=== PATIENT | female | born 1990 | race Caucasian/White ===

== ENCOUNTER 2019-04-11 10:43 | Emergency (ER) | payer BC ==
[2019-04-11] MEDS ORDERED: Ondansetron 4 MG/2 ML SDV IVPUSH ONE (10:45)
[2019-04-11] MEDS ORDERED: Sodium Chloride 0.9% 1,000 ML IV ONE (10:45)
--- NOTE | 2019-04-11 10:45 | EDM.PDOC ---
ED HPI GENERAL MEDICAL PROBLEM - General Stated Complaint: 9 WEEKS PREG--VOMITING Time Seen by Provider: 04/11/19 10:44 Source of Information: Reports: Patient History Limitations: Reports: No Limitations - History of Present Illness INITIAL COMMENTS - FREE TEXT/NARRATIVE: HISTORY AND PHYSICAL: History of present illness: Patient is a 28-year-old female who presents to the emergency room today with complaints of nausea and vomiting in . She states she has been nauseous and vomiting every day for the past month. Patient states she follows with Dr Snyder at [facility]. She has been using Zofran routinely but feels this medication is not alleviating her symptoms. Last took Zofran at 7 AM this morning. She called the clinic this morning and was encouraged to come to the emergency room for evaluation/IV fluid. Her next appointment with Dr. Snyder is on 05/03/2019. LMP: 02/08/2019, , P:0 Patient denies any fever, chills, headache, change in vision, syncope or near syncope. Denies any chest pain, back pain, shortness of breath or cough. Denies any abdominal pain, nausea, vomiting, diarrhea, constipation or dysuria. Denies any vaginal bleeding, discharge or cramping. Has not noted any blood in urine or stool. Patient has been eating and drinking appropriately. Review of systems: As per history of present illness and below otherwise all systems reviewed and negative. Past medical history: As per history of present illness and as reviewed below otherwise noncontributory. Surgical history: As per history of present illness and as reviewed below otherwise noncontributory. Social history: See social history for further information Family history: As per history of present illness and as reviewed below otherwise noncontributory. Physical exam: General: Well-developed and well-nourished 28-year-old female. Alert and oriented. Nontoxic appearing and in no acute distress. HEENT: Atraumatic, normocephalic, pupils equal and reactive bilaterally, negative for conjunctival pallor or scleral icterus, mucous membranes moist, TMs normal bilaterally, throat clear, neck supple, nontender, trachea midline. No drooling or trismus noted. No meningeal signs. No hot potato voice noted. Lungs: Clear to auscultation, breath sounds equal bilaterally, chest nontender. Heart: S1S2, regular rate and rhythm without overt murmur Abdomen: Soft, nondistended, nontender. Negative for masses. Negative for costovertebral tenderness. Pelvis: Stable nontender. Genitourinary: Deferred. Rectal: Deferred. Skin: Intact, warm, dry. No lesions or rashes noted. Extremities: Atraumatic, moves all extremities per self without difficulty or deficits, negative for cords or calf pain. Neurovascular unremarkable. Neuro: Awake, alert, oriented. Cranial nerves II through XII unremarkable. Cerebellum unremarkable. Motor and sensory unremarkable throughout. Exam nonfocal. Notes: Patient feels improved after the IV fluids and Zofran. We'll offer her some Diclegis, as she feels the Zofran she has at home is not helping. She does have an appointment with Dr. Snyder later this month. Encouraged her to keep that appointment and or follow-up sooner if needed. Supportive care measures were reviewed and discussed. Voices understanding and is agreeable to plan of care. Denies any further questions or concerns at this time. Diagnostics: [employer]: NS, Zofran Prescription: Diclegis Impression: Nausea and Vomiting in Plan: 1. Small frequent meals throughout the day. Increase your oral fluids. 2. You can take the Diclegis as directed. Further refills per Dr Snyder. You may still uses Zofran if you feel this is helpful. 3. Please keep your appointment Dr. Snyder in follow-up as directed. Return to the ED as needed and as discussed. Definitive disposition and diagnosis as appropriate pending reevaluation and review of above. - Related Data Allergies Allergy/AdvReac Type Severity Reaction Status Date / Time latex Allergy Other Verified 04/11/19 10:55 Home Meds: Home Meds Hydroxychloroquine Sulfate [Plaquenil] 200 mg PO DAILY 04/11/19 [History] Ondansetron [Zofran ODT] 4 mg PO Q6H PRN 04/11/19 [History] 148/Iron/Folate 6/Dha [Tendera-Ob Softgel] 1 tab DAILY 04/11/19 [ History] ED ROS GENERAL - Review of Systems Review Of Systems: ROS reveals no pertinent complaints other than HPI. ED EXAM, GI/ABD - Physical Exam Exam: See Below (See dictation) Course - Vital Signs Last Recorded V/S: Last Vital Signs Temp 97.9 F 04/11/19 10:53 Pulse 113 H 04/11/19 10:53 Resp 18 04/11/19 10:53 BP 124/86 04/11/19 10:53 Pulse Ox 99 04/11/19 10:53 - Orders/Labs/Meds Orders: Active Orders 24 hr Category Date Time Status Sodium Chloride 0.9% [Normal Saline] 1,000 ml Med 04/11/19 10:45 Active IV STAT Medication Orders Sodium Chloride (Normal Saline) 1,000 mls @ 999 mls/hr IV STAT ONE Stop: 04/11/19 11:45 Last Admin: 04/11/19 11:02 Dose: 999 mls/hr Labs: Laboratory Tests 04/11/19 Range/Units 11:10 Urine Color DARK YELLOW Urine Appearance CLEAR Urine pH 6.0 (5.0-8.0) Ur Specific Branch >= 1.030 (1.001-1.035) Urine Protein NEGATIVE (NEGATIVE) mg/dL Urine Glucose (UA) NEGATIVE (NEGATIVE) mg/dL Urine Ketones >=80 (NEGATIVE) mg/dL Urine Occult Blood NEGATIVE (NEGATIVE) Urine Nitrite NEGATIVE (NEGATIVE) Urine Bilirubin SMALL H (NEGATIVE) Urine Ictotest NEGATIVE Urine Urobilinogen 0.2 (<2.0) EU/dL Ur Leukocyte Esterase NEGATIVE (NEGATIVE) Meds: Medications Generic Name Dose Route Start Last Admin Trade Name Freq PRN Reason Stop Dose Admin Sodium Chloride 1,000 mls @ 999 mls/hr 04/11/19 10:45 04/11/19 11:02 Normal Saline IV 04/11/19 11:45 999 mls/hr STAT ONE Administration Discontinued Medications Generic Name Dose Route Start Last Admin Trade Name Freq PRN Reason Stop Dose Admin Ondansetron HCl 4 mg 04/11/19 10:45 04/11/19 11:02 Zofran IVPUSH 04/11/19 10:46 4 mg ONETIME ONE Administration Departure - Departure Time of Disposition: 11:45 Disposition: Home, Self-Care 01 Clinical Impression: Nausea and vomiting during - Discharge Information Instructions: Morning Sickness, [id number] Referrals: Kelly Snyder MD [Primary Care Provider] - Additional Instructions: The following information is given to patients seen in the emergency department who are being discharged to home. This information is to outline your options for follow-up care. We provide all patients seen in our emergency department with a follow-up referral. The need for follow-up, as well as the timing and circumstances, are variable depending upon the specifics of your emergency department visit. If you don't have a primary care physician on staff, we will provide you with a referral. We always advise you to contact your personal physician following an emergency department visit to inform them of the circumstance of the visit and for follow-up with them and/or the need for any referrals to a consulting specialist. The emergency department will also refer you to a specialist when appropriate. This referral assures that you have the opportunity for follow-up care with a specialist. All of these measure are taken in an effort to provide you with optimal care, which includes your follow-up. Under all circumstances we always encourage you to contact your private physician who remains a resource for coordinating your care. When calling for follow-up care, please make the office aware that this follow-up is from your recent emergency room visit. If for any reason you are refused follow-up, please contact the [facility] Emergency Department at and asked to speak to the emergency department charge nurse. [facility] [address] [place] [address] [place] [address] 1. Small frequent meals throughout the day. Increase your oral fluids. 2. You can take the Diclegis as directed. Further refills per Dr Snyder. You may still uses Zofran if you feel this is helpful. 3. Please keep your appointment Dr. Snyder in follow-up as directed. Return to the ED as needed and as discussed. - My Orders Last 24 Hours: My Active Orders 04/11/19 10:45 Sodium Chloride 0.9% [Normal Saline] 1,000 ml IV STAT - Assessment/Plan Last 24 Hours: My Active Orders 04/11/19 10:45 Sodium Chloride 0.9% [Normal Saline] 1,000 ml IV STAT
== END 2019-04-11 12:01 | disposition home or self-care (01) ==
LOC: MW.ED 10:43
DX: O21.9 Vomiting of pregnancy, unspecified (principal); Z91.040 Latex allergy status; Z3A.09 9 weeks gestation of pregnancy
CPT/HCPCS: 81003; 96361; 96374; 99283; J2405; J7040

== ENCOUNTER 2019-10-30 15:35 | Inpatient (IN) | payer BC, OTHER ==
[2019-10-30] MEDS ORDERED: Tranexamic Acid 1,000 MG in Sodium Chloride 0.9% 100 ML IV PRN (16:21)
[2019-10-30] MEDS ORDERED: Butorphanol 1 MG/ML SDV IVPUSH PRN (16:21)
[2019-10-30] MEDS ORDERED: Misoprostol 200 MCG Tab PO PRN (16:21)
[2019-10-30] MEDS ORDERED: Terbutaline 1 MG/ML SDV SUBCUT PRN (16:21)
[2019-10-30] MEDS ORDERED: Water For Irrigation,Sterile 1,000 ML Container IRR PRN (16:21)
[2019-10-30] MEDS ORDERED: Nalbuphine 10 MG/1 ML Vial IVPUSH PRN (16:21)
[2019-10-30] MEDS ORDERED: Ondansetron 4 MG/2 ML SDV IVPUSH PRN (16:21)
[2019-10-30] MEDS ORDERED: Methylergonovine 0.2 MG/1 ML Amp IM PRN (16:21)
[2019-10-30] MEDS ORDERED: Sodium Chloride 0.9% 10 ML Syringe FLUSH PRN (16:21)
[2019-10-30] MEDS ORDERED: Carboprost Tromethamine 250 MCG/1 ML Amp IM PRN (16:21)
[2019-10-30] MEDS ORDERED: Sodium Chloride 0.9% 2.5 ML Syringe FLUSH PRN (16:21)
[2019-10-30] MEDS ORDERED: Lidocaine 1% 50 ML MDV INJECT PRN (16:21)
[2019-10-30] MEDS ORDERED: Sodium Chloride 0.9% 10 ML SDV IV PRN (16:21)
[2019-10-30] MEDS ORDERED: Oxytocin/0.9 % Sodium Chloride 30 UNIT/500 ML BAG IV SCH ×2 (16:30)
[2019-10-30] MEDS ORDERED: Ampicillin 2 GM in Sodium Chloride 0.9% 100 ML IV ONE (17:00)
[2019-10-30] MEDS: Lactated Ringers 1,000 ML IV SCH ×3 (17:14→23:49)
[2019-10-30 17:42] LABS: BLOOD UREA NITROGEN,BUN 13 mg/dL (7.0-18.0); CARBON DIOXIDE,CO2 22.6 mmol/L (21.0-32.0); CHLORIDE,CL 103 mmol/L (98-107); GLUCOSE RANDOM 86 mg/dL (74-106); POTASSIUM,K 3.7 mmol/L (3.5-5.1); SODIUM,NA 136 mmol/L (136-145)
[2019-10-30] MEDS: Ampicillin 1 GM in Sodium Chloride 0.9% 50 ML IV SCH (21:21)
--- NOTE | 2019-10-30 23:09 | PCM.PREANE ---
Preanesthetic Assessment - Anesthesia/Transfusion/Family Hx Anesthesia History: Prior Anesthesia Reaction (PONV) Type of Anesthesia Reaction: Other (see below) (PONV) Family History of Anesthesia Reaction: No Transfusion History: No Prior Transfusion(s) Intubation History: Unknown - Review of Systems General: No Symptoms Pulmonary: No Symptoms Cardiovascular: No Symptoms, Other (PIH) Gastrointestinal: Other (GDM) Neurological: Other (Lupus) - Physical Assessment NPO Status Date: 10/30/19 NPO Status Time: 21:00 Height: 5 ft 6 in Weight: 79.832 kg ASA Class: 2 Mental Status: Alert & Oriented x3 Airway Class: Mallampati = 1 Dentition: Reports: Normal Dentition Thyro-Mental Finger Breadths: 3 ROM/Head Extension: Full Lungs: Clear to Auscultation, Normal Respiratory Effort Cardiovascular: Regular Rate, Regular Rhythm - Lab Values: Laboratory Last Values WBC 6.74 K/uL (4.0-11.0) 10/30/19 16:43 RBC 4.15 M/uL (4.30-5.90) L 10/30/19 16:43 Hgb 11.3 g/dL (12.0-16.0) L 10/30/19 16:43 Hct 35.0 % (36.0-46.0) L 10/30/19 16:43 MCV 84.3 fL (80.0-98.0) 10/30/19 16:43 MCH 27.2 pg (27.0-32.0) 10/30/19 16:43 MCHC 32.3 g/dL (31.0-37.0) 10/30/19 16:43 RDW Std Deviation 38.6 fl (28.0-62.0) 10/30/19 16:43 RDW Coeff of Justin 13 % (11.0-15.0) 10/30/19 16:43 Plt Count 208 K/uL (150-400) 10/30/19 16:43 MPV 11.10 fL (7.40-12.00) 10/30/19 16:43 Nucleated RBC % 0.0 /100WBC 10/30/19 16:43 Nucleated RBCs # 0 K/uL 10/30/19 16:43 Sodium 136 mmol/L (136-145) 10/30/19 16:43 Potassium 3.7 mmol/L (3.5-5.1) 10/30/19 16:43 Chloride 103 mmol/L (98-107) 10/30/19 16:43 Carbon Dioxide 22.6 mmol/L (21.0-32.0) 10/30/19 16:43 BUN 13 mg/dL (7.0-18.0) 10/30/19 16:43 Creatinine 0.6 mg/dL (0.6-1.0) 10/30/19 16:43 Est Cr Clr Drug Dosing 128.35 mL/min 10/30/19 16:43 Estimated GFR (MDRD) > 60.0 ml/min 10/30/19 16:43 Glucose 86 mg/dL (74-106) 10/30/19 16:43 POC Glucose 85 mg/dL (60-110) 10/30/19 21:15 Uric Acid 3.2 mg/dL (2.6-7.2) 10/30/19 16:43 Calcium 8.7 mg/dL (8.5-10.1) 10/30/19 16:43 Total Bilirubin 0.2 mg/dL (0.2-1.0) 10/30/19 16:43 AST 22 IU/L (15-37) 10/30/19 16:43 ALT 23 IU/L (14-63) 10/30/19 16:43 Alkaline Phosphatase 141 U/L (46-116) H 10/30/19 16:43 Total Protein 6.0 g/dL (6.4-8.2) L 10/30/19 16:43 Albumin 2.7 g/dL (3.4-5.0) L 10/30/19 16:43 Globulin 3.3 g/dL (2.6-4.0) 10/30/19 16:43 Albumin/Globulin Ratio 0.8 (0.9-1.6) L 10/30/19 16:43 Ur Random Creatinine 129.7 mg/dL 10/30/19 16:00 U Random Total Protein 24.5 mg/dL (<11.9) H 10/30/19 16:00 Protein/Creatinin Ratio 0.2 10/30/19 16:00 Blood Type A NEGATIVE 10/30/19 16:43 Antibody Screen NEGATIVE 10/30/19 16:43 - Allergies Allergies/Adverse Reactions: Allergies Allergy/AdvReac Type Severity Reaction Status Date / Time latex Allergy Rash Verified 10/30/19 16:19 - Acknowledgements Anesthesia Type Planned: Epidural Pt an Appropriate Candidate for the Planned Anesthesia: Yes Alternatives and Risks of Anesthesia Discussed w Pt/Guardian: Yes Pt/Guardian Understands and Agrees with Anesthesia Plan: Yes PreAnesthesia Questionnaire - Past Health History Medical/Surgical History: Denies Medical/Surgical History HEENT History: Reports: None Cardiovascular History: Reports: Hypertension, Other (See Below) Other Cardiovascular History: gestational hypertension Genitourinary History: Reports: None 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 , Musculoskeletal History: Reports: SLE Psychiatric History: Reports: Anxiety Endocrine/Metabolic History: Reports: Diabetes, Gestational Immunologic History: Reports: SLE - Past Surgical History Head Surgeries/Procedures: Reports: None HEENT Surgical History: Reports: Oral Surgery Cardiovascular Surgical History: Reports: None Female Surgical History: Reports: Breast Implant Endocrine Surgical History: Reports: None Musculoskeletal Surgical History: Reports: None, Other (See Below) Other Musculoskeletal Surgeries/Procedures:: surgery on left foot - SUBSTANCE USE Smoking Status *Q: Never Smoker Recreational Drug Use History: No - HOME MEDS Home Medications: Home Meds 148/Iron/Folate 6/Dha [Tendera-Ob Softgel] 1 tab PO DAILY 04/11/19 [ History] Hydroxychloroquine Sulfate [Plaquenil] 1 tab PO DAILY 09/16/19 [History] buPROPion [Wellbutrin SR] 1 tab PO DAILY 10/30/19 [History] - CURRENT (IN HOUSE) MEDS Current Meds: Current Medications Butorphanol Tartrate (Stadol) 1 mg IVPUSH Q1H PRN PRN Reason: Pain Carboprost Tromethamine (Hemabate Ds) 250 mcg IM ASDIRECTED PRN PRN Reason: Post Hemorrhage Ampicillin Sodium 1 gm/ Sodium (Chloride) 50 mls @ 100 mls/hr IV Q4H [facility] Last Admin: 10/30/19 21:21 Dose: 100 mls/hr Lactated Ringer's (Ringers, Lactated) 1,000 mls @ 150 mls/hr IV ASDIRECTED [facility] Last Admin: 10/30/19 17:14 Dose: 150 mls/hr Oxytocin/Sodium Chloride (Oxytocin 30 Unit/500 Ml-Ns) 30 unit in 500 mls @ 500 mls/hr IV TITRATE ADONIS Oxytocin/Sodium Chloride (Oxytocin 30 Unit/500 Ml-Ns) 30 unit in 500 mls @ 2 mls/hr IV TITRATE ADONIS; Protocol Last Titration: 10/30/19 22:23 Dose: 16 munits/min, 16 mls/hr Tranexamic Acid 1,000 mg/ (Sodium Chloride) 110 mls @ 660 mls/hr IV ONETIME PRN PRN Reason: Bleeding Lidocaine HCl (Xylocaine 1%) 50 ml INJECT ONETIME PRN PRN Reason: Laceration repair Methylergonovine Maleate (Methergine) 0.2 mg IM ASDIRECTED PRN PRN Reason: Post Hemorrhage Misoprostol (Cytotec) 200 mcg PO ONETIME PRN PRN Reason: Post Hemorrhage Nalbuphine HCl (Nubain) 10 mg IVPUSH Q1H PRN PRN Reason: Pain (severe 7-10) Ondansetron HCl (Zofran) 4 mg IVPUSH Q6H PRN PRN Reason: Nausea/Vomiting Sodium Chloride (Saline Flush) 10 ml FLUSH ASDIRECTED PRN PRN Reason: Keep Vein Open Sodium Chloride (Saline Flush) 2.5 ml FLUSH ASDIRECTED PRN PRN Reason: Keep Vein Open Sodium Chloride (Normal Saline) 10 ml IV ASDIRECTED PRN PRN Reason: IV Use Sterile Water (Sterile Water For Irrigation) 1,000 ml IRR ASDIRECTED PRN PRN Reason: delivery Terbutaline Sulfate (Brethine) 0.25 mg SUBCUT ASDIRECTED PRN PRN Reason: Tacysystole Discontinued Medications Ampicillin Sodium 2 gm/ Sodium (Chloride) 100 mls @ 200 mls/hr IV ONETIME ONE Stop: 10/30/19 17:29 Last Admin: 10/30/19 17:15 Dose: 200 mls/hr
[2019-10-30] MEDS ORDERED: Bupivicaine/fentaNYL/NS 250 ML ONE (23:11)
[2019-10-31] MEDS: Ampicillin 1 GM in Sodium Chloride 0.9% 50 ML IV SCH ×4 (01:11→16:57)
[2019-10-31] MEDS ORDERED: Bupivacaine 0.25% 10 ML SDV ONE ×2 (04:13→07:55)
[2019-10-31] MEDS: Lactated Ringers 1,000 ML IV SCH ×4 (04:18→19:19)
[2019-10-31] MEDS ORDERED: Morphine PF 10 MG/10 ML SDV ONE ×2 (07:47→09:55)
[2019-10-31] MEDS ORDERED: Oxytocin 10 Units/1 ML SDV ONE (07:53)
[2019-10-31] MEDS ORDERED: Ondansetron 4 MG/2 ML SDV ONE (07:53)
[2019-10-31] MEDS ORDERED: Azithromycin 500 MG in Sodium Chloride 0.9% 250 ML IV SCH (08:00)
[2019-10-31] MEDS ORDERED: ceFAZolin 1 GM Vial ONE (08:16)
[2019-10-31] MEDS ORDERED: Ketamine 500 mg/10 ML MDV ONE (08:37)
[2019-10-31] MEDS ORDERED: Midazolam 1 MG/ML 2 ML SDV ONE ×2 (08:46→09:01)
[2019-10-31] MEDS ORDERED: Acetaminophen/oxyCODONE 325-5 MG Tab PO PRN (09:52)
[2019-10-31] MEDS ORDERED: diphenhydrAMINE 50 MG/ML SDV IVPUSH PRN (09:52)
[2019-10-31] MEDS ORDERED: Lanolin 100% Cream 7 GM Tube TOP PRN (09:52)
[2019-10-31] MEDS ORDERED: Bisacodyl 10 MG Supp RECTAL PRN (09:52)
[2019-10-31] MEDS ORDERED: Tranexamic Acid 1,000 MG in Sodium Chloride 0.9% 100 ML IV PRN (09:52)
[2019-10-31] MEDS ORDERED: Famotidine 20 MG Tab PO PRN (09:52)
[2019-10-31] MEDS ORDERED: Misoprostol 200 MCG Tab RECTAL PRN (09:52)
[2019-10-31] MEDS ORDERED: Methylergonovine 0.2 MG/1 ML Amp IM PRN (09:52)
[2019-10-31] MEDS ORDERED: Oxytocin 10 Units/1 ML SDV IM PRN (09:52)
[2019-10-31] MEDS ORDERED: Oxytocin/Lactated Ringers 30 UNIT/500 ML BAG IV SCH (10:00)
--- NOTE | 2019-10-31 10:07 | PCM.OPNOTE ---
- General Post-Op/Procedure Note Date of Surgery/Procedure: 10/31/19 Operative Procedure(s): Primary low-transverse cesearean section Findings: Live female infant, asynclitic in occiput transverse position Apgars 8/9, weight 3120g, arterial pH 7.121/base excess -8, venous pH 7.115/ base excess -9 Extension of hysterotomy to bilateral broad ligaments Pre Op Diagnosis: 29yo at 38w3d. Induction of labor for gestational hypertension. Gestational diabetes. Arrest of descent. Right occiput transverse position Post-Op Diagnosis: 29yo at 38w3d. Induction of labor for gestational hypertension. Gestational diabetes. Arrest of descent. Right occiput transverse position Anesthesia Technique: Epidural Primary Surgeon: Kelly Snyder Secondary Surgeon: Donald Nelson Shingle Sawyer: Agusto Medina Pathology: Placenta, umbilical cord gases, umbilical cord blood Fluid Replacement, Intraop: 1,000 Output, Urine Amount: 500 (blood-tinged) EBL in mLs: 800 Complications: None Condition: Good Free Text/Narrative:: Preoperative antibiotic prophylaxis: 2g Ancef, 500mg Azithromycin IV GBS prophylaxis: Ampicillin per routine
[2019-10-31] MEDS: Ketorolac 30 MG/ML SDV IVPUSH SCH ×3 (10:22→21:54)
--- NOTE | 2019-10-31 11:01 | PCM.POSTAN ---
POST ANESTHESIA ASSESSMENT - MENTAL STATUS Mental Status: Alert, Oriented - RESPIRATORY Respiratory Status: Respiratory Rate WNL, Airway Patent, O2 Saturation Stable - CARDIOVASCULAR CV Status: Pulse Rate WNL, Blood Pressure Stable - GASTROINTESTINAL GI Status: No Symptoms - PAIN Pain Score: 3 - POST OP HYDRATION Hydration Status: Adequate & Stable
[2019-10-31] MEDS: Ondansetron 4 MG/2 ML SDV IVPUSH PRN ×2 (13:18→17:19)
[2019-10-31] MEDS: Hydroxychloroquine 200 MG Tab PO SCH (15:14)
[2019-10-31] MEDS: buPROPion 150 MG Tab.SR PO SCH (15:15)
--- NOTE | 2019-10-31 17:05 | PCM.SN.2 ---
- Free Text/Narrative Note: I was informed by patient that her dressing was soaked Patient seen at bedside , dressing , slightly soaked Dressing removed and changed. VSS 119/72 , HR: 92 Plan: Wound dressing check Pain control as needed Julia
[2019-10-31] MEDS: Docusate Sodium 100 MG Cap PO SCH (21:54)
[2019-10-31] MEDS ORDERED: Nalbuphine 10 MG/1 ML Vial IVPUSH PRN (22:21)
[2019-11-01] MEDS: Ampicillin 1 GM in Sodium Chloride 0.9% 50 ML IV SCH ×3 (03:03→08:31)
[2019-11-01] MEDS: Ketorolac 30 MG/ML SDV IVPUSH SCH ×3 (04:02→09:21)
--- NOTE | 2019-11-01 07:39 | PCM48HPAN ---
Post Anesthesia Note - EVALUATION WITHIN 48HRS OF ANESTHETIC Vital Signs in Normal Range: Yes Patient Participated in Evaluation: Yes Respiratory Function Stable: Yes Airway Patent: Yes Cardiovascular Function Stable: Yes Hydration Status Stable: Yes Pain Control Satisfactory: Yes Nausea and Vomiting Control Satisfactory: Yes Mental Status Recovered: Yes Vital Signs: Last Vital Signs Temp 36.2 C 11/01/19 04:00 Pulse 100 11/01/19 06:00 Resp 18 11/01/19 06:00 BP 120/59 L 11/01/19 04:00 Pulse Ox 96 11/01/19 06:00 - COMMENTS/OBSERVATIONS Free Text/Narrative:: full sensation in legs bilaterally
--- NOTE | 2019-11-01 08:37 | PCM.PNPP ---
- General Info Date of Service: 11/01/19 Subjective Update: Patient doing well. Pain controlled with oral pain medication. Minimal lochia. Ambulating in room. Currently attempting to void for first time after Roberts removal. Difficulty with latch yesterday. Nausea with food intake yesterday. Functional Status: Reports: Pain Controlled, Ambulating - Review of Systems General: Reports: No Symptoms HEENT: Reports: No Symptoms Pulmonary: Reports: No Symptoms Cardiovascular: Reports: No Symptoms Gastrointestinal: Reports: No Symptoms Genitourinary: Reports: No Symptoms Musculoskeletal: Reports: No Symptoms Skin: Reports: No Symptoms Neurological: Reports: No Symptoms Psychiatric: Reports: No Symptoms - Patient Data Vital Signs - Most Recent: Last Vital Signs Temp 36.2 C 11/01/19 04:00 Pulse 100 11/01/19 06:00 Resp 18 11/01/19 06:00 BP 120/59 L 11/01/19 04:00 Pulse Ox 96 11/01/19 06:00 Weight - Most Recent: 79.832 kg I&O - Last 24 Hours: Intake & Output 10/31/19 11/01/19 11/01/19 22:59 06:59 14:59 Intake Total 950 Output Total 575 900 Balance 375 -900 Lab Results - Last 24 Hours: Laboratory Results - last 24 hr 10/31/19 10/31/19 10/31/19 Range/Units 08:35 10:00 12:18 Hgb (12.0-16.0) g/dL Hct (36.0-46.0) % Cord ABG pH 7.121 L (7.18-7.38) Cord ABG Base Excess -8 (-10--2) Cord VBG pH 7.115 L (7.25-7.45) Cord VBG Base Excess -9 (-10--2) POC Glucose 96 (60-110) mg/dL Screen NEGATIVE (NEGATIVE) RhIG Candidate? YES Rhogam Indicated YES, BABY RH POS H 11/01/19 Range/Units 05:15 Hgb 8.5 L (12.0-16.0) g/dL Hct 26.6 L (36.0-46.0) % Cord ABG pH (7.18-7.38) Cord ABG Base Excess (-10--2) Cord VBG pH (7.25-7.45) Cord VBG Base Excess (-10--2) POC Glucose (60-110) mg/dL Screen (NEGATIVE) RhIG Candidate? Rhogam Indicated Med Orders - Current: Current Medications Bisacodyl (Dulcolax) 10 mg RECTAL ONETIME PRN PRN Reason: Constipation Bupropion HCl (Wellbutrin Sr) 150 mg PO DAILY [facility] Last Admin: 10/31/19 15:15 Dose: Not Given Butorphanol Tartrate (Stadol) 1 mg IVPUSH Q1H PRN PRN Reason: Pain Carboprost Tromethamine (Hemabate Ds) 250 mcg IM ASDIRECTED PRN PRN Reason: Post Hemorrhage Diphenhydramine HCl (Benadryl) 25 mg IVPUSH Q6H PRN PRN Reason: Itching or Nausea Docusate Sodium (Colace) 100 mg PO BID [facility] Last Admin: 10/31/19 21:54 Dose: 100 mg Emollient Ointment (Lansinoh Hpa) 0 gm TOP ASDIRECTED PRN PRN Reason: Sore Nipples Famotidine (Pepcid) 20 mg PO BID PRN PRN Reason: Heartburn Hydroxychloroquine Sulfate (Plaquenil) 200 mg PO DAILY [facility] Last Admin: 10/31/19 15:14 Dose: Not Given Ampicillin Sodium 1 gm/ Sodium (Chloride) 50 mls @ 100 mls/hr IV Q4H [facility] Last Admin: 11/01/19 08:31 Dose: Not Given Lactated Ringer's (Ringers, Lactated) 1,000 mls @ 150 mls/hr IV ASDIRECTED [facility] Last Infusion: 10/31/19 07:46 Dose: 999 mls/hr Oxytocin/Sodium Chloride (Oxytocin 30 Unit/500 Ml-Ns) 30 unit in 500 mls @ 500 mls/hr IV TITRATE ADONIS Oxytocin/Sodium Chloride (Oxytocin 30 Unit/500 Ml-Ns) 30 unit in 500 mls @ 2 mls/hr IV TITRATE [facility]; Protocol Last Titration: 10/31/19 07:46 Dose: 0 munits/min, 0 mls/hr Tranexamic Acid 1,000 mg/ (Sodium Chloride) 110 mls @ 660 mls/hr IV ONETIME PRN PRN Reason: Bleeding Azithromycin 500 mg/ Sodium (Chloride) 250 mls @ 500 mls/hr IV ONETIME ADONIS Tranexamic Acid 1,000 mg/ (Sodium Chloride) 110 mls @ 660 mls/hr IV ONETIME PRN PRN Reason: Bleeding Lactated Ringer's (Ringers, Lactated) 1,000 mls @ 125 mls/hr IV ASDIRECTED [facility] Last Admin: 10/31/19 19:19 Dose: 125 mls/hr Oxytocin/Lactated Ringer's (Pitocin In Lr 30 Units/500 Ml) 30 unit in 500 mls @ 999 mls/hr IV TITRATE ADONIS; Protocol Ibuprofen (Motrin) 800 mg PO Q8H PRN PRN Reason: mild pain or fever Ketorolac Tromethamine (Toradol) 30 mg IVPUSH Q6H [facility] Stop: 11/01/19 10:01 Last Admin: 11/01/19 04:02 Dose: 30 mg Lidocaine HCl (Xylocaine 1%) 50 ml INJECT ONETIME PRN PRN Reason: Laceration repair Methylergonovine Maleate (Methergine) 0.2 mg IM ASDIRECTED PRN PRN Reason: Post Hemorrhage Methylergonovine Maleate (Methergine) 0.2 mg IM ONETIME PRN PRN Reason: Excessive Vaginal Bleeding Misoprostol (Cytotec) 200 mcg PO ONETIME PRN PRN Reason: Post Hemorrhage Misoprostol (Cytotec) 1,000 mcg RECTAL ONETIME PRN PRN Reason: excessive bleeding Nalbuphine HCl (Nubain) 10 mg IVPUSH Q1H PRN PRN Reason: Pain (severe 7-10) Last Admin: 10/31/19 22:04 Dose: 10 mg Nalbuphine HCl (Nubain) 5 mg IVPUSH Q6H PRN PRN Reason: Itching Last Admin: 10/31/19 22:36 Dose: 5 mg Ondansetron HCl (Zofran) 4 mg IVPUSH Q4H PRN PRN Reason: Nausea/Vomiting Last Admin: 10/31/19 17:19 Dose: 4 mg Oxycodone/Acetaminophen (Percocet 325-5 Mg) 1 tab PO Q4H PRN PRN Reason: Pain (moderate 4-6) Oxycodone/Acetaminophen (Percocet 325-5 Mg) 2 tab PO Q4H PRN PRN Reason: Pain (moderate 4-6) Oxytocin (Pitocin) 10 unit IM ASDIRECTED PRN PRN Reason: Excessive Vaginal Bleeding Sodium Chloride (Saline Flush) 10 ml FLUSH ASDIRECTED PRN PRN Reason: Keep Vein Open Sodium Chloride (Saline Flush) 2.5 ml FLUSH ASDIRECTED PRN PRN Reason: Keep Vein Open Sodium Chloride (Normal Saline) 10 ml IV ASDIRECTED PRN PRN Reason: IV Use Sterile Water (Sterile Water For Irrigation) 1,000 ml IRR ASDIRECTED PRN PRN Reason: delivery Terbutaline Sulfate (Brethine) 0.25 mg SUBCUT ASDIRECTED PRN PRN Reason: Tacysystole Discontinued Medications Bupivacaine HCl (Sensorcaine-Mpf 0.25%) Confirm Administered Dose 10 ml .ROUTE .STK-MED ONE Stop: 10/31/19 04:14 Last Admin: 11/01/19 08:30 Dose: Not Given Bupivacaine HCl (Sensorcaine-Mpf 0.25%) Confirm Administered Dose 20 ml .ROUTE .STK-MED ONE Stop: 10/31/19 07:56 Last Admin: 11/01/19 08:30 Dose: Not Given Cefazolin Sodium (Ancef) Confirm Administered Dose 2 gm .ROUTE .STK-MED ONE Stop: 10/31/19 08:17 Ampicillin Sodium 2 gm/ Sodium (Chloride) 100 mls @ 200 mls/hr IV ONETIME ONE Stop: 10/30/19 17:29 Last Admin: 10/30/19 17:15 Dose: 200 mls/hr Fentanyl/Bupivacaine HCl (Fentanyl/Bupivacaine/Ns 2 Mcg-0.125% 250 Ml) Confirm Administered Dose 250 mls @ as directed .ROUTE .STK-MED ONE Stop: 10/30/19 23:12 Ketamine HCl (Ketalar) Confirm Administered Dose 500 mg .ROUTE .STK-MED ONE Stop: 10/31/19 08:38 Midazolam HCl (Versed 1 Mg/Ml) Confirm Administered Dose 2 mg .ROUTE .STK-MED ONE Stop: 10/31/19 08:47 Midazolam HCl (Versed 1 Mg/Ml) Confirm Administered Dose 2 mg .ROUTE .STK-MED ONE Stop: 10/31/19 09:02 Morphine Sulfate (Duramorph Pf) Confirm Administered Dose 10 mg .ROUTE .STK-MED ONE Stop: 10/31/19 07:48 Morphine Sulfate (Duramorph Pf) Confirm Administered Dose 10 mg .ROUTE .STK-MED ONE Stop: 10/31/19 09:56 Ondansetron HCl (Zofran) 4 mg IVPUSH Q6H PRN PRN Reason: Nausea/Vomiting Ondansetron HCl (Zofran) Confirm Administered Dose 4 mg .ROUTE .STK-MED ONE Stop: 10/31/19 07:54 Oxytocin (Pitocin) Confirm Administered Dose 20 unit .ROUTE .STK-MED ONE Stop: 10/31/19 07:54 - Interaction Infant Disposition, : to Nursery Feeding: Attempted ; Nursed Fair/Poor, Bottle Fed Infant Support Person: - Recovery Exam Fundal Tone: Firm Fundal Level: 1 Fingerbreadths Below Umbilicus Fundal Placement: Midline Lochia Amount: Scant Lochia Color: Rubra/Red Bladder Status: Nonpalpable - Exam General: Alert, Oriented Neck: Supple Lungs: Clear to Auscultation, Normal Respiratory Effort Cardiovascular: Regular Rate, Regular Rhythm GI/Abdominal Exam: Soft, Non-Tender, No Distention Extremities: Non-Tender, Pedal Edema (2+) Skin: Warm, Dry, Intact Wound/Incisions: Dressing Dry and Intact Neurological: No New Focal Deficit Psy/Mental Status: Alert, Normal Affect, Normal Mood - Problem List & Annotations (1) delivery delivered SNOMED Code(s): 389694316 Code(s): O82 - ENCOUNTER FOR DELIVERY WITHOUT INDICATION Status: Acute Current Visit: Yes (2) Gestational diabetes mellitus (GDM) SNOMED Code(s): 21632306 Code(s): O24.419 - GESTATIONAL DIABETES MELLITUS IN , UNSP CONTROL Status: Acute Current Visit: Yes (3) Gestational hypertension SNOMED Code(s): 309685430 Code(s): O13.9 - GESTATIONAL HTN W/O SIGNIFICANT PROTEINURIA, UNSP TRIMESTER Status: Acute Current Visit: Yes (4) Arrest of descent, delivered, current hospitalization SNOMED Code(s): 57659809, 616493505 Code(s): O62.1 - SECONDARY UTERINE INERTIA Status: Acute Current Visit: Yes - Problem List Review Problem List Initiated/Reviewed/Updated: Yes - My Orders Last 24 Hours: My Active Orders 10/31/19 08:00 Azithromycin [Zithromax] 500 mg Sodium Chloride 0.9% [Normal Saline (AdvBag)] 250 ml IV ONETIME 10/31/19 09:52 Patient Status [ADT] Routine Ambulate [RC] PER UNIT ROUTINE Antiembolic Devices [RC] PER UNIT ROUTINE Communication Order [RC] PER UNIT ROUTINE Communication Order [RC] PER UNIT ROUTINE Communication Order [RC] Per Unit Routine Intake and Output [RC] QSHIFT Notify Provider Intake and Out [RC] ASDIRECTED Notify Provider Vital Signs [RC] ASDIRECTED RT Incentive Spirometry [RC] Q2HWA Vital Signs [RC] PER UNIT ROUTINE Acetaminophen/oxyCODONE [Percocet 325-5 MG] 1 tab PO Q4H PRN Acetaminophen/oxyCODONE [Percocet 325-5 MG] 2 tab PO Q4H PRN Famotidine [Pepcid] 20 mg PO BID PRN Ibuprofen [Motrin] 800 mg PO Q8H PRN Lanolin [Lansinoh HPA] See Dose Instructions TOP ASDIRECTED PRN Methylergonovine [Methergine] 0.2 mg IM ONETIME PRN Ondansetron [Zofran] 4 mg IVPUSH Q4H PRN Oxytocin [Pitocin] 10 unit IM ASDIRECTED PRN Tranexamic Acid [Cyklokapron] 1,000 mg Sodium Chloride 0.9% [Normal Saline] 100 ml IV ONETIME bisacodyL [Dulcolax] 10 mg RECTAL ONETIME PRN diphenhydrAMINE [Benadryl] 25 mg IVPUSH Q6H PRN miSOPROStoL [Cytotec] 1,000 mcg RECTAL ONETIME PRN Abdominal Binder [OM.PC] Routine Assess Lochia [WOMSER] Per Unit Routine Assess Uterine Involution [WOMSER] Per Unit Routine Breast Pump [WOMSER] Per Unit Routine DVT/VTE Prophylaxis Reflex [OM.PC] Routine Peripheral IV Discontinue [OM.PC] Routine Sequential Compression Device [OM.PC] Per Unit Routine 10/31/19 09:53 Heat Therapy [OM.PC] Per Unit Routine Ice Therapy [OM.PC] Per Unit Routine 10/31/19 09:54 Antiembolic Devices [RC] .Routine 10/31/19 10:00 SCREEN [BBK] Routine RH IMMUNE GLOBULIN [BBK] Routine RHIG WORKUP, [BBK] Routine Hydroxychloroquine [Plaquenil] 200 mg PO DAILY Ketorolac [Toradol] 30 mg IVPUSH Q6H Lactated Ringers [Ringers, Lactated] 1,000 ml IV ASDIRECTED Oxytocin/Lactated Ringers [Pitocin in LR 30 Units/500 ML] 30 unit in 500 ml IV TITRATE buPROPion [Wellbutrin SR] 150 mg PO DAILY 10/30/ 21:00 Docusate Sodium [Colace] 100 mg PO BID 10/31/19 Lunch Regular Diet [DIET] - Assessment Assessment:: 29yo s/p 1LTCS for arrest of descent, malposition at 38w3d, POD#1 - Plan Plan:: 1. Post-op: Continue routine post-op care. Encourage ambulation. 2. GHTN: BP wnl, no signs/symptoms of preeclampsia, continue to monitor. 3. GDMA1: 2-hour GTT . 4. Anemia: Acute blood loss anemia, begin daily iron supplementation, no dizziness with ambulation. 5. SLE: Continue Plaquenil. 6. Anxiety: Continue Wellbutrin. 7. Dispo: Anticipate discharge home on POD#2.
[2019-11-01] MEDS ORDERED: Docusate Sodium 100 MG Cap PO PRN (08:38)
[2019-11-01] MEDS: Hydroxychloroquine 200 MG Tab PO SCH (09:17)
[2019-11-01] MEDS: Docusate Sodium 100 MG Cap PO SCH ×2 (09:17→20:37)
[2019-11-01] MEDS: buPROPion 150 MG Tab.SR PO SCH (09:17)
[2019-11-01] MEDS: Ferrous Sulfate 325 MG Tab PO SCH ×2 (09:17→17:43)
[2019-11-01] MEDS: Ibuprofen 800 MG Tab PO PRN ×2 (09:26→17:43)
[2019-11-01] MEDS: Acetaminophen/oxyCODONE 325-5 MG Tab PO PRN ×2 (11:19→15:08)
--- NOTE | 2019-11-01 15:43 | OR ---
SURGEON: Kelly Snyder MD DATE OF PROCEDURE: 10/31/2019 PREOPERATIVE DIAGNOSES: 1. 29-year-old, G2, P 0-0-1-0, at 38 weeks and 3 days gestation. 2. Induction of labor for gestational hypertension. 3. Gestational diabetes. 4. Arrest of descent. 5. Right occiput transverse position. POSTOPERATIVE DIAGNOSES: 1. 29-year-old, G2, P 1-0-1-1, at 38 weeks and 3 days gestation. 2. Induction of labor for gestational hypertension. 3. Gestational diabetes. 4. Arrest of descent. 5. Right occiput transverse position. PROCEDURE: Primary low transverse section via Pfannenstiel. ANESTHESIA: Epidural. PRIMARY SURGEON: Kelly Snyder MD PARTNER MARKETING INTERN: Dr. Donald Nelson. ANESTHESIOLOGIST: rik Ward. ANTIBIOTIC PROPHYLAXIS: GBS prophylaxis, Ampicillin per routine. PREOPERATIVE PROPHYLAXIS: 2 g of Ancef and 500 mg of Azithromycin IV. IV FLUIDS: 1000 mL LR. URINE OUTPUT: 500 mL of blood-tinged urine. ESTIMATED BLOOD LOSS: 800 mL. PATHOLOGY: Placenta, umbilical cord gases, umbilical cord blood. FINDINGS: 1. Live female infant, asynclitic, in occiput transverse position. 2. scores 8 and 9 at 1 and 5 minutes respectively. Weight 3120 g. Arterial pH 7.121 with a base excess of -8. Venous pH 7.115 with base excess -9. 3. Extension of hysterotomy to bilateral broad ligaments. INDICATIONS: This is a 29-year-old G2, P 0-0-1-0, who presented at 38 weeks and 2 days gestation for induction of labor due to gestational hypertension. The patient also had gestational diabetes which was diet controlled. Her blood pressures and blood sugars were monitored throughout her labor course. She was started on Ampicillin for Group B Strep prophylaxis. Upon admission, her cervix was found to be 1-2cm dilated. She was started in IV Pitocin for induction of labor. At approximately 4cm dilated, she received an epidural for pain control. Spontaneous rupture of membranes occurred shortly thereafter. She progressed to complete cervical dilation and began pushing. After 2 hours of pushing, the skull remained at +2 station. The 's head was felt to be in right occiput transverse position. Attempted rotation of the head to occiput anterior or occiput posterior were unsuccessful. After discussion with the patient, the decision was made to proceed with primary section for arrest of descent. The risks and benefits of section were discussed with the patient prior to proceeding to the operating room. DESCRIPTION OF PROCEDURE: The patient arrived to the operating room where a bolus was given through her epidural. The patient was prepared and draped in the usual fashion. A Pfannenstiel skin incision was made and carried through to the underlying layer of fascia with the scalpel. The fascia was incised in the midline, and the incision extended laterally with curved Cole scissors. The superior aspect of the fascial incision was grasped with Riya clamps, elevated, and the underlying rectus muscles dissected off bluntly. In a similar manner, the inferior aspect of the fascial incision was grasped with Riya clamps, elevated , and the underlying rectus muscles dissected off bluntly and with the curved Cole scissors. The peritoneum was identified in the midline, and entered bluntly. The peritoneal incision was extended via manual traction. A large Sorin retractor was placed. A bladder flap was created in the usual fashion. A low uterine hysterotomy was created. The incision was extended using manual traction. Using a hand from below, attempts were made to dislodge the head and bring it to the incision. The second surgeon also attempted delivery of the head. The infant's left arm delivered through the incision, and was replaced into the uterus. At this time, I replaced the RN providing pressure from the vagina to help with delivery of the head. In coordination with the second surgeon, the head was disengaged from the pelvis and brought to the incision. Gown and gloves were replaced. The was then delivered from the uterus. The cord was clamped and cut. The infant was handed off to the awaiting nurse and Senior Hr Manager. Cord blood and cord gases were obtained. The placenta was delivered via manual extraction. The uterus was cleared of all clots. The inferior aspect of the hysterotomy was grasped with ring forceps and elevated to visualize the corners of the incision. The incision was noted to have extended inferiorly at the bilateral apices. The bilateral broad ligaments were also noted to have torn. The hysterotomy was repaired with a running, locked stitch of 0-Vicyrl suture. A second stitch of the same suture was used to imbricate the incision. The bilateral broad ligaments were reapproximated with a running stitch of 0-Vicyrl suture. The hysterotomy was inspected and a [id number] suture was placed at an area of bleeding. The bovie was used to obtain hemostasis of bleeding serosa. The uterus was returned to the abdomen. The peritoneum was closed with a running stitch of 2-0 Vicryl suture. The fascia was closed with a running stitch of 0-Vicryl suture. The skin was closed in a subcuticular fashion with 4-0 Monocryl. A pressure dressing was applied. The patient did not have adequate pain control during the surgery and was given Versed after delivery of the . All sponge, lap, and needle counts were correct. [id number] / MODL /[id number]
[2019-11-02] MEDS: Acetaminophen/oxyCODONE 325-5 MG Tab PO PRN ×4 (01:01→16:34)
[2019-11-02] MEDS: Ibuprofen 800 MG Tab PO PRN ×3 (02:39→20:02)
--- NOTE | 2019-11-02 07:41 | PCM48HPAN ---
Post Anesthesia Note - EVALUATION WITHIN 48HRS OF ANESTHETIC Vital Signs in Normal Range: Yes Patient Participated in Evaluation: Yes Respiratory Function Stable: Yes Airway Patent: Yes Cardiovascular Function Stable: Yes Hydration Status Stable: Yes Pain Control Satisfactory: Yes Nausea and Vomiting Control Satisfactory: Yes Mental Status Recovered: Yes Vital Signs: Last Vital Signs Temp 36.7 C 11/02/19 03:51 Pulse 101 H 11/02/19 03:51 Resp 16 11/02/19 03:51 BP 106/61 11/02/19 03:51 Pulse Ox 97 11/02/19 03:51
[2019-11-02] MEDS: buPROPion 150 MG Tab.SR PO SCH (08:42)
[2019-11-02] MEDS: Docusate Sodium 100 MG Cap PO SCH ×2 (08:42→20:01)
[2019-11-02] MEDS: Ferrous Sulfate 325 MG Tab PO SCH (08:42)
--- NOTE | 2019-11-02 08:47 | PCM.PNPP ---
- General Info Date of Service: 11/02/19 Subjective Update: Continues to have difficulty with breastpumping. Minimal lochia. Pain controlled. Voiding, passing flatus. Tolerating oral intake. Mood good, has not cried since delivery. Functional Status: Reports: Pain Controlled, Tolerating Diet, Ambulating, Urinating - Review of Systems General: Reports: No Symptoms HEENT: Reports: No Symptoms Pulmonary: Reports: No Symptoms Cardiovascular: Reports: No Symptoms Gastrointestinal: Reports: No Symptoms Genitourinary: Reports: No Symptoms Musculoskeletal: Reports: No Symptoms Skin: Reports: No Symptoms Neurological: Reports: No Symptoms Psychiatric: Reports: No Symptoms - Patient Data Vital Signs - Most Recent: Last Vital Signs Temp 36.3 C 11/02/19 08:00 Pulse 91 11/02/19 08:00 Resp 16 11/02/19 08:00 BP 106/66 11/02/19 08:00 Pulse Ox 98 11/02/19 08:00 Weight - Most Recent: 79.832 kg Lab Results - Last 24 Hours: Laboratory Results - last 24 hr 10/31/19 Range/Units 10:00 Screen NEGATIVE (NEGATIVE) RhIG Candidate? YES Rhogam Indicated YES, BABY RH POS H Med Orders - Current: Current Medications Bisacodyl (Dulcolax) 10 mg RECTAL ONETIME PRN PRN Reason: Constipation Bupropion HCl (Wellbutrin Sr) 150 mg PO DAILY [facility] Last Admin: 11/02/19 08:42 Dose: 150 mg Butorphanol Tartrate (Stadol) 1 mg IVPUSH Q1H PRN PRN Reason: Pain Carboprost Tromethamine (Hemabate Ds) 250 mcg IM ASDIRECTED PRN PRN Reason: Post Hemorrhage Diphenhydramine HCl (Benadryl) 25 mg IVPUSH Q6H PRN PRN Reason: Itching or Nausea Docusate Sodium (Colace) 100 mg PO BID [facility] Last Admin: 11/02/19 08:42 Dose: 100 mg Docusate Sodium (Colace) 100 mg PO BID PRN PRN Reason: Constipation Emollient Ointment (Lansinoh Hpa) 0 gm TOP ASDIRECTED PRN PRN Reason: Sore Nipples Famotidine (Pepcid) 20 mg PO BID PRN PRN Reason: Heartburn [facility] Admin: 11/02/19 08:42 Dose: 325 mg Hydroxychloroquine Sulfate (Plaquenil) 200 mg PO DAILY [facility] Last Admin: 11/01/19 09:17 Dose: 200 mg Lactated Ringer's (Ringers, Lactated) 1,000 mls @ 150 mls/hr IV ASDIRECTED [facility] Last Infusion: 10/31/19 07:46 Dose: 999 mls/hr Oxytocin/Sodium Chloride (Oxytocin 30 Unit/500 Ml-Ns) 30 unit in 500 mls @ 500 mls/hr IV TITRATE ADONIS Oxytocin/Sodium Chloride (Oxytocin 30 Unit/500 Ml-Ns) 30 unit in 500 mls @ 2 mls/hr IV TITRATE [facility]; Protocol Last Titration: 10/31/19 07:46 Dose: 0 munits/min, 0 mls/hr Tranexamic Acid 1,000 mg/ (Sodium Chloride) 110 mls @ 660 mls/hr IV ONETIME PRN PRN Reason: Bleeding Azithromycin 500 mg/ Sodium (Chloride) 250 mls @ 500 mls/hr IV ONETIME ADONIS Tranexamic Acid 1,000 mg/ (Sodium Chloride) 110 mls @ 660 mls/hr IV ONETIME PRN PRN Reason: Bleeding Lactated Ringer's (Ringers, Lactated) 1,000 mls @ 125 mls/hr IV ASDIRECTED [facility] Last Admin: 10/31/19 19:19 Dose: 125 mls/hr Oxytocin/Lactated Ringer's (Pitocin In Lr 30 Units/500 Ml) 30 unit in 500 mls @ 999 mls/hr IV TITRATE [facility]; Protocol Ibuprofen (Motrin) 800 mg PO Q8H PRN PRN Reason: mild pain or fever Last Admin: 11/02/19 02:39 Dose: 800 mg Lidocaine HCl (Xylocaine 1%) 50 ml INJECT ONETIME PRN PRN Reason: Laceration repair Methylergonovine Maleate (Methergine) 0.2 mg IM ASDIRECTED PRN PRN Reason: Post Hemorrhage Methylergonovine Maleate (Methergine) 0.2 mg IM ONETIME PRN PRN Reason: Excessive Vaginal Bleeding Misoprostol (Cytotec) 200 mcg PO ONETIME PRN PRN Reason: Post Hemorrhage Misoprostol (Cytotec) 1,000 mcg RECTAL ONETIME PRN PRN Reason: excessive bleeding Nalbuphine HCl (Nubain) 10 mg IVPUSH Q1H PRN PRN Reason: Pain (severe 7-10) Last Admin: 10/31/19 22:04 Dose: 10 mg Nalbuphine HCl (Nubain) 5 mg IVPUSH Q6H PRN PRN Reason: Itching Last Admin: 10/31/19 22:36 Dose: 5 mg Ondansetron HCl (Zofran) 4 mg IVPUSH Q4H PRN PRN Reason: Nausea/Vomiting Last Admin: 10/31/19 17:19 Dose: 4 mg Oxycodone/Acetaminophen (Percocet 325-5 Mg) 1 tab PO Q4H PRN PRN Reason: Pain (moderate 4-6) Last Admin: 11/02/19 06:10 Dose: 1 tab Oxycodone/Acetaminophen (Percocet 325-5 Mg) 2 tab PO Q4H PRN PRN Reason: Pain (moderate 4-6) Last Admin: 11/01/19 20:36 Dose: 2 tab Oxytocin (Pitocin) 10 unit IM ASDIRECTED PRN PRN Reason: Excessive Vaginal Bleeding Sodium Chloride (Saline Flush) 10 ml FLUSH ASDIRECTED PRN PRN Reason: Keep Vein Open Sodium Chloride (Saline Flush) 2.5 ml FLUSH ASDIRECTED PRN PRN Reason: Keep Vein Open Sodium Chloride (Normal Saline) 10 ml IV ASDIRECTED PRN PRN Reason: IV Use Sterile Water (Sterile Water For Irrigation) 1,000 ml IRR ASDIRECTED PRN PRN Reason: delivery Terbutaline Sulfate (Brethine) 0.25 mg SUBCUT ASDIRECTED PRN PRN Reason: Tacysystole Discontinued Medications Bupivacaine HCl (Sensorcaine-Mpf 0.25%) Confirm Administered Dose 10 ml .ROUTE .STK-MED ONE Stop: 10/31/19 04:14 Last Admin: 11/01/19 08:30 Dose: Not Given Bupivacaine HCl (Sensorcaine-Mpf 0.25%) Confirm Administered Dose 20 ml .ROUTE .STK-MED ONE Stop: 10/31/19 07:56 Last Admin: 11/01/19 08:30 Dose: Not Given Cefazolin Sodium (Ancef) Confirm Administered Dose 2 gm .ROUTE .STK-MED ONE Stop: 10/31/19 08:17 Ampicillin Sodium 2 gm/ Sodium (Chloride) 100 mls @ 200 mls/hr IV ONETIME ONE Stop: 10/30/19 17:29 Last Admin: 10/30/19 17:15 Dose: 200 mls/hr Ampicillin Sodium 1 gm/ Sodium (Chloride) 50 mls @ 100 mls/hr IV Q4H [facility] Last Admin: 11/01/19 08:31 Dose: Not Given Fentanyl/Bupivacaine HCl (Fentanyl/Bupivacaine/Ns 2 Mcg-0.125% 250 Ml) Confirm Administered Dose 250 mls @ as directed .ROUTE .STK-MED ONE Stop: 10/30/19 23:12 Ketamine HCl (Ketalar) Confirm Administered Dose 500 mg .ROUTE .STK-MED ONE Stop: 10/31/19 08:38 Ketorolac Tromethamine (Toradol) 30 mg IVPUSH Q6H [facility] Stop: 11/01/19 10:01 Last Admin: 11/01/19 09:21 Dose: Not Given Midazolam HCl (Versed 1 Mg/Ml) Confirm Administered Dose 2 mg .ROUTE .STK-MED ONE Stop: 10/31/19 08:47 Midazolam HCl (Versed 1 Mg/Ml) Confirm Administered Dose 2 mg .ROUTE .STK-MED ONE Stop: 10/31/19 09:02 Morphine Sulfate (Duramorph Pf) Confirm Administered Dose 10 mg .ROUTE .STK-MED ONE Stop: 10/31/19 07:48 Morphine Sulfate (Duramorph Pf) Confirm Administered Dose 10 mg .ROUTE .STK-MED ONE Stop: 10/31/19 09:56 Ondansetron HCl (Zofran) 4 mg IVPUSH Q6H PRN PRN Reason: Nausea/Vomiting Ondansetron HCl (Zofran) Confirm Administered Dose 4 mg .ROUTE .STK-MED ONE Stop: 10/31/19 07:54 Oxytocin (Pitocin) Confirm Administered Dose 20 unit .ROUTE .STK-MED ONE Stop: 10/31/19 07:54 - Interaction Disposition, : to Nursery Feeding: Attempted ; Nursed Fair/Poor, Bottle Fed Infant Support Person: - Recovery Exam Fundal Tone: Firm Fundal Level: 1 Fingerbreadths Below Umbilicus Fundal Placement: Midline Lochia Amount: Scant Lochia Color: Rubra/Red Bladder Status: Voiding Urinary Elimination: Voided - Exam General: Alert, Oriented Neck: Supple Lungs: Clear to Auscultation, Normal Respiratory Effort Cardiovascular: Regular Rate, Regular Rhythm GI/Abdominal Exam: Soft, Non-Tender, No Distention Extremities: Non-Tender Skin: Warm, Dry, Intact Wound/Incisions: Healing Well Neurological: No New Focal Deficit Psy/Mental Status: Alert, Normal Affect, Normal Mood - Problem List & Annotations (1) delivery delivered SNOMED Code(s): 716522415 Code(s): O82 - ENCOUNTER FOR DELIVERY WITHOUT INDICATION Status: Acute Current Visit: Yes (2) Gestational diabetes mellitus (GDM) SNOMED Code(s): 91568417 Code(s): O24.419 - GESTATIONAL DIABETES MELLITUS IN , UNSP CONTROL Status: Acute Current Visit: Yes (3) Gestational hypertension SNOMED Code(s): 977461279 Code(s): O13.9 - GESTATIONAL HTN W/O SIGNIFICANT PROTEINURIA, UNSP TRIMESTER Status: Acute Current Visit: Yes (4) Arrest of descent, delivered, current hospitalization SNOMED Code(s): 60740410, 368147912 Code(s): O62.1 - SECONDARY UTERINE INERTIA Status: Acute Current Visit: Yes - Problem List Review Problem List Initiated/Reviewed/Updated: Yes - My Orders Last 24 Hours: My Active Orders 11/01/19 08:38 Docusate Sodium [Colace] 100 mg PO BID PRN 11/01/19 09:00 Ferrous Sulfate 325 mg PO BIDMEALS 11/02/19 08:42 Ready for Discharge [RC] PER UNIT ROUTINE - Assessment Assessment:: 29yo s/p 1LTCS for arrest of descent, malposition at 38w3d, POD#2 - Plan Plan:: 1. Post-op: Continue routine post-op care. Encourage ambulation. Continue Colace. 2. GHTN: BP wnl, no signs/symptoms of preeclampsia, continue to monitor. 3. GDMA1: 2-hour GTT . 4. Anemia: Acute blood loss anemia, continue daily iron supplementation, no dizziness with ambulation. 5. SLE: Continue Plaquenil. 6. Anxiety: Continue Wellbutrin. 7. Dispo: Desires discharge home today if cleared by newsstand vendor ( currently under bili lights). Reviewed discharge instructions.
[2019-11-02] MEDS: Hydroxychloroquine 200 MG Tab PO SCH (09:01)
== END 2019-11-02 22:00 | disposition home or self-care (01) | DRG 540 ==
LOC: UNDOADMOB 15:35 → MW.OB 15:35 → OBSVTOIN 10-31 08:43 → INTOOBSV 10-31 08:43 → MW.OB 10-31 08:43
PROVIDERS: ADMIT Obstetrics & Gynecology; ATTEND Obstetrics & Gynecology
PROC: 10D00Z1 Extraction of Products of Conception, Low, Open Approach (ICD-10-PCS; principal; 2019-10-31)
PROC: 3E0234Z Introduction of Serum, Toxoid and Vaccine into Muscle, Percutaneous Approach (ICD-10-PCS; 2019-10-31)
DX: O13.4 Gestational [pregnancy-induced] hypertension without significant proteinuria, complicating childbirth (principal); O99.02 Anemia complicating childbirth; D62 Acute posthemorrhagic anemia; O24.429 Gestational diabetes mellitus in childbirth, unspecified control; O62.1 Secondary uterine inertia; O32.2XX0 Maternal care for transverse and oblique lie, not applicable or unspecified; O26.899 Other specified pregnancy related conditions, unspecified trimester; Z37.0 Single live birth; Z3A.38 38 weeks gestation of pregnancy; Z67.11 Type A blood, Rh negative
CPT/HCPCS: 36415; 36430; 51702; 59025; 80053; 82570; 82803; 82962; 84156; 84550; 85014; 85018; 85027; 85460; 86592; 86593; 86850; 86900; 86901; 88307; A9270-GY; J0290; J0690; J1885; J2250; J2270; J2300; J2405; J2590; J2792; J3490; J7050; J7120